=== PATIENT | male | born 1965 | race Caucasian/White ===

== ENCOUNTER 2019-04-02 06:29 | Inpatient (IN) | payer SELFPAY ==
[~2019-04-02] VITALS: Ht 188 cm; Wt 125.9 kg
[~2019-04-02 06:29] MED LIST: ASPI325; HYDACE5325 PO; LORA1 PO; MULVITMIND PO; PROM25 PO
[2019-04-02] MEDS ORDERED: LOSA25 PO (06:47)
[2019-04-02 06:59] LABS: BASOPHILS ABSOLUTE AUTO 0.11 K/mm3 (0.00-0.23); BASOPHILS PERCENT AUTO 1 % (0-2); EOSINOPHILS ABSOLUTE AUTO 0.29 K/mm3 (0.00-0.68); EOSINOPHILS PERCENT AUTO 3 % (0-6); Hematocrit 53.2 % (37.0-53.0); IMMATURE GRAN ABSOLUTE AUTO 0.22 K/mm3 (0.00-0.10); IMMATURE GRAN PERCENT AUTO 2 % (0-1); LYMPHOCYTES ABSOLUTE AUTO 2.94 K/mm3 (0.84-5.20); LYMPHOCYTES PERCENT AUTO 29 % (21-46); MONOCYTES ABSOLUTE AUTO 0.74 K/mm3 (0.16-1.47); MONOCYTES PERCENT AUTO 7 % (4-13); Mean Corpuscular HGB 31.3 pg (26.0-34.0); Mean Corpuscular HGB Conc 33.8 g/dL (31.5-36.5); Mean Corpuscular Volume 92 fL (80-100); Mean Platelet Volume 8.5 fL (9.1-12.4); NEUTROPHILS ABSOLUTE AUTO 5.69 K/mm3 (1.96-9.15); NEUTROPHILS PERCENT AUTO 57 % (41-73); Platelet Count 303 K/mm3 (150-400); RDW Coefficient Variation 12.4 % (11.7-14.2); RDW Standard Deviation 42.1 fL (35.1-46.3); Red Blood Cell Count 5.76 M/mm3 (4.30-5.90); White Blood Cell Count 9.99 K/mm3 (4.00-11.30)
[2019-04-02 07:10] LABS: International Normalized Ratio 0.99; Prothrombin Time Results 10.5 Sec (9.7-11.5)
[2019-04-02 07:11] LABS: Alanine Aminotransfer (ALT/SGP 43 U/L (12-78); Albumin, Blood 4.2 g/dL (3.4-5.0); Albumin/Globulin Ratio 1.2 (0.8-1.8); Alk Phos 72 U/L (50-136); Anion Gap 6 mmol/L (6-16); Aspartate Aminotrans (AST/SGOT 31 U/L (12-37); Bilirubin, Total 0.6 mg/dL (0.1-1.0); Blood Urea Nitrogen 11 mg/dL (8-24); CO2, Blood 28 mmol/L (21-32); Calcium, Blood 8.9 mg/dL (8.5-10.1); Chloride, Blood 106 mmol/L (98-108); Globulin, Blood 3.4 g/dL (2.2-4.0); Glomerular Filtration Rate >60 (60-); Glucose, Blood 100 mg/dL (70-99); Potassium, Blood 4.2 mmol/L (3.5-5.5); Sodium, Blood 140 mmol/L (136-145); Total Protein, Blood 7.6 g/dL (6.4-8.2); Troponin I <0.015 ng/mL (0.000-0.040)
--- NOTE | 2019-04-02 10:55 | NUR ---
PATIENT ARRIVED FROM ER VIA STRETCHER AFTER REPORT WAS RECEIVED FROM CYNTHIA CR, VIA TELEPHONE, PATIENT ABLE TO MOVE SELF FROM STRETCHER TO BED, PLACED ON MONITOR, CALL LIGHT GIVEN AND EXPLAINED, ADMISSION DONE, AT BEDSIDE, PATIENT DENIES PAIN AT THIS TIME, AFEBRILE, STATES THAT HE IS VERY ANXIOUS D/T HIS PTSD, AND HAS NEVER BEEN IN THE HOSPITAL, PATIENT IS ON CARDIZEM GTT AT 5, HR BETWEEN 120'S TO 150'S, VSS OTHERWISE, PATIENT IS ON RA, LUNG SOUNDS CLEAR BUT DIMINISHED, A-FIB, BOWEL TONES HYPOACTIVE, PEDAL PULSES PALPABLE, PATIENT OPTED NOT TO WEAR HOSPITAL GOWN AND LEFT HIS PANTS ON, URINAL GIVEN AND INSTRUCTED TO CALL RN AFTER HE VOIDED, PATIENT VERBALIZED UNDERSTANDING, PATIENT ALSO REFUSED SCD'S AFTER THE RIGHT ON WAS APPLIED, STATED "I AM STARTING TO FEEL TRAPPED", DR. LAWRENCE NOTIFIED AND ORDER FOR SCD'S WAS DISCONTINUED, PATIENT WAS ORIENTED TO ROOM AND NEW ENVIRONMENT, CALL LIGHT IN REACH, WILL CONTINUE TO MONITOR.
--- NOTE | 2019-04-02 13:37 | NUR ---
PATIENT IS RESTING COMFORTABLY, HR DOWN TO 80'S AND 90'S WITH SBP'S IN LOW 110'S, VOIDED WITHOUT ANY PROBLEMS, AT BEDSIDE, PATIENT PLEASANT AND COOPERATIVE, CALL LIGHTIN REACH, WILL CONTINUE TO MONITOR.
[2019-04-02 14:07] LABS: U Amphetamine Screen Not Detected; U Barbituate Screen Not Detected; U Benzodiazapine Screen Not Detected; U Buprenorphine Screen Not Detected; U Cannabinoids Screen Not Detected; U Cocaine Screen Not Detected; U Methadone Screen Not Detected; U Methamphetamine Screen Not Detected; U Opiates Screen Not Detected; U Oxycodone Screen Not Detected; U Phencyclidine Screen Not Detected; U Propoxyphene Screen Not Detected
--- NOTE | 2019-04-02 17:41 | NUR ---
SHIFT SUMMARY NOTE: NO ACUTE EVENTS DURING THIS SHIFT SINCE PATIENT ADMISSION, CONTINUES ON A CARDIZEM GTT, WAS TITRATED FROM 10 DOWN TO 5, PATIENT CONTINUES IN A-FIB WITH HR IN 70'S TO 80'S, SBP'S FROM 120'S TO 130'S, PATIENT HAS A HISTORY OF HTN, FOR WHICH HE TAKES COZAAR AT HOME, LUNG SOUNDS ARE CLEAR BUT DIMINISHED, BOWEL TONES HYPOACTIVE, PATIENT IS ON A CARDIAC DIET AND EATS WITH GREAT APPETITE, USES URINAL TO VOID AND HAD OVER 2L OUT, ALSO DRINKS LOTS OF WATER, PATIENT IS ON LOVENOX, SCD'S WERE DISCONTINUED D/T PATIENT'S ANXIETY LEVEL AND HIS PTSD, PATIENT IS PLEASANT AND COOPERATIVE, ASKS QUESTIONS, MAKES HIS NEEDS KNOWN, AT BEDSIDE, FOR DETAILS SEE ADMISSION AND SHIFT ASSESSMENT DOCUMENTATION AND NURSES NOTES, CALL LIGHT IN REACH, WILL CONTINUE TO MONITOR AND GIVE REPORT TO ONCOMING WELDING INSPECTOR.
--- NOTE | 2019-04-02 19:51 | NUR ---
ASSUMED CARE OF PT, HE IS RESTING QUIETLY AND WATCHING TV. HE DENIES N/V, DENIES SOB/DYSPNEA, DENIES NUMBNESS/TINGLING, DENIES PAIN. ADMITS TO ONGOING CHEST PRESSURE AND PROVIDES 1/10 FOR SCALE. HE IS SPEAKING IN FULL SENTENCES, LUNGS ARE CLEAR THROUGHOUT, MAINTAINING SATS ON ROOM AIR, NO INCREASED WORK OF BREATHING IS NOTED AT THIS TIME. HR IRREG, AFIB ON MONITOR, RATE CONTROLLED TO 80S AT THIS TIME, PRESSURE MAINTAINING, PULSES FULL X 4 EXTREMITIES, BRISK CAP REFILL, NO EDEMA NOTED, SKIN PWD. ABD MILDLY DISTENDED AND SOFT, BOWEL TONES NORMOACTIVE AT THIS TIME, NO TENDERNESS WITH PALPATION. 20 GAUGE IV NOTED TO LEFT AC INFUSING CARDIZEM AT 5 MG/HR, SITE WNL, DRESSING CDI.
[2019-04-03 03:21] LABS: BASOPHILS ABSOLUTE AUTO 0.09 K/mm3 (0.00-0.23); BASOPHILS PERCENT AUTO 1 % (0-2); EOSINOPHILS PERCENT AUTO 2 % (0-6); Hematocrit 49.6 % (37.0-53.0); Hemoglobin 16.6 g/dL (13.5-17.5); IMMATURE GRAN ABSOLUTE AUTO 0.16 K/mm3 (0.00-0.10); IMMATURE GRAN PERCENT AUTO 2 % (0-1); LYMPHOCYTES ABSOLUTE AUTO 2.64 K/mm3 (0.84-5.20); LYMPHOCYTES PERCENT AUTO 31 % (21-46); MONOCYTES ABSOLUTE AUTO 0.69 K/mm3 (0.16-1.47); MONOCYTES PERCENT AUTO 8 % (4-13); Mean Corpuscular HGB 31.3 pg (26.0-34.0); Mean Corpuscular HGB Conc 33.5 g/dL (31.5-36.5); Mean Corpuscular Volume 94 fL (80-100); Mean Platelet Volume 8.5 fL (9.1-12.4); NEUTROPHILS ABSOLUTE AUTO 4.78 K/mm3 (1.96-9.15); NEUTROPHILS PERCENT AUTO 56 % (41-73); Platelet Count 228 K/mm3 (150-400); RDW Coefficient Variation 12.3 % (11.7-14.2); RDW Standard Deviation 42.5 fL (35.1-46.3); White Blood Cell Count 8.56 K/mm3 (4.00-11.30)
[2019-04-03 03:37] LABS: Alanine Aminotransfer (ALT/SGP 37 U/L (12-78); Albumin, Blood 3.5 g/dL (3.4-5.0); Albumin/Globulin Ratio 1.2 (0.8-1.8); Alk Phos 60 U/L (50-136); Anion Gap 4 mmol/L (6-16); Aspartate Aminotrans (AST/SGOT 25 U/L (12-37); Bilirubin, Total 0.7 mg/dL (0.1-1.0); Blood Urea Nitrogen 12 mg/dL (8-24); Bun/Creatinine Ratio 10.6 (12.0-20.0); CO2, Blood 31 mmol/L (21-32); Calcium, Blood 8.9 mg/dL (8.5-10.1); Chloride, Blood 107 mmol/L (98-108); Creatinine, Blood 1.13 mg/dL (0.60-1.20); Glomerular Filtration Rate >60 (60-); Glucose, Blood 92 mg/dL (70-99); Potassium, Blood 4.2 mmol/L (3.5-5.5); Sodium, Blood 142 mmol/L (136-145); Total Protein, Blood 6.5 g/dL (6.4-8.2)
--- NOTE | 2019-04-03 06:13 | NUR ---
PT AWAKE FREQUENTLY THROUGHOUT SHIFT, STATES THAT "IT'S LIKE A HOTEL ROOM, I CAN'T SLEEP THERE EITHER." HE CONTINUES TO DENY CHEST PAIN THROUGHOUT SHIFT AND STATES THAT HE IS FEELING WELL THIS AM. HE WAS NOTED TO HAVE A HEART RATE INCREASE TO THE 150S WITH UP TO THE TOILET THIS AM HOWEVER RATE DECREASED WITHIN 60 SECONDS TO 80-90S, AFIB CONTINUES THROUGHOUT SHIFT.
--- NOTE | 2019-04-03 07:16 | NUR ---
START OF SHIFT NOTE: RECEIVED REPORT FROM ISREAL BURROUGHS RN, ASSUMED CARE, PATIENT IS AWAKE, ALERT AND ORIENTED, WATCHING TV, DENIES PAIN, AFEBRILE, REPORTS THAT HE TOOK CAT NAPS DURING THE NIGHT, ANIBAL GTT ON STANDBY, HR BETWEEN 90'S AND LOW 110'S, PATIENT HAD ONE BRIEF EPISODE OF HR IN 160'S WHEN HE GOT UP TO URINATE, SBP'S IN LOW 100'S, LUNG SOUNDS ARE CLEAR, BOWEL TONES PRESENT IN ALL FOUR QUADRANTS AND HYPOACTIVE, PEDAL PULSES PALPABLE BUT FAINT, CALL LIGHT IN REACH, WILL CONTINUE TO MONITOR.
--- NOTE | 2019-04-03 08:03 | NUR ---
PATIENT SHOWS SOME SIGNS OF ANXIETY, STATED "IF NOBODY SHOWS UP BY LUNCH I AM OUT OF HERE", PATIENT WAS ADVISED THAT IT IS HIS RIGHT, BUT HE NEEDS TO SIGN AN AMA FORM, PATIENT VERBALIZED UNDERSTANDING, PATIENT'S HR WITH SITTING UP OR ANY ACTIVITY IS BACK INTO 120'S TO 140'S, DISCUSSED PATIENT'S MEDICATION FOR THIS AM, PATIENT EATING BREAKFAST AT THIS TIME, CALL LIGHT IN REACH, WILL CONTINUE TO MONITOR.
--- NOTE | 2019-04-03 09:00 | NUR ---
DR. LAWRENCE IN TO SEE PATIENT, NEW ORDERS RECEIVED.
--- NOTE | 2019-04-03 12:34 | NUR ---
PATIENT IS SLEEPING SOUNDLY AFTER RECEIVING 50 MG OF LIBRIUM PO AND HAVING LUNCH, AT BEDSIDE, CALL LIGHT IN REACH, WILL CONTINUE TO MONITOR.
[2019-04-03] MEDS ORDERED: ASPI325 PO (14:31)
[2019-04-03] MEDS ORDERED: FOLI1 PO (14:32)
[2019-04-03] MEDS ORDERED: METO50 PO (14:34)
[2019-04-03] MEDS ORDERED: Thiamine HCl100 MG PO (14:35)
[2019-04-03] MEDS ORDERED: ABAT250V (14:35)
--- NOTE | 2019-04-03 15:03 | NUR ---
PATIENT WAS DISCHARGED TO HOME, PAPERWORK WRITTEN AND VERBAL PROVIDED AND EXPLAINED, PATIENT AND VERBALIZED UNDERSTANDING, NEW MEDICATION WAS FAXED TO [facility] ON [address] AND EXPLAINED TO PATIENT, WILL HOME CARE ASSISTANT, PIV REMOVED WITH TIP AND TUBING INTACT, PATIENT DENIED ESCORT OUT OF HOSPITAL AND WALKED TO EXIT ACCOMPANIED BY AND DAUGHTER.
== END 2019-04-03 15:00 | disposition home or self-care (01) | DRG 310 ==
LOC: ER 06:29 → ICUW 09:30 → ICUE 10:47
PROVIDERS: Emergency Medicine; Nurse Practitioner Acute Care; ADMIT Internal Medicine
DX: I48.91 Unspecified atrial fibrillation (principal); F17.290 Nicotine dependence, other tobacco product, uncomplicated; I10 Essential (primary) hypertension; F43.10 Post-traumatic stress disorder, unspecified; K21.9 Gastro-esophageal reflux disease without esophagitis; F41.1 Generalized anxiety disorder; F32.9 Major depressive disorder, single episode, unspecified; F10.20 Alcohol dependence, uncomplicated; Z79.82 Long term (current) use of aspirin
CPT/HCPCS: 36415; 71045; 80053; 83735; 84443; 84484; 85025; 85610; 85730; 93005; 93010; 93306; 96365-59; 96366; 96376-59; 99285-25; J1650; J2060; J7030

== ENCOUNTER 2019-04-26 08:29 | Emergency (ER) | payer SELFPAY ==
[~2019-04-26] VITALS: Ht 190.5 cm; Wt 127.0 kg
[~2019-04-26 08:29] MED LIST changes: +ABAT250V; +ASPI325 PO; +FOLI1 PO; +LOSA25 PO; +METO50 PO; +Thiamine HCl100 MG PO
[2019-04-26 09:15] LABS: BASOPHILS ABSOLUTE AUTO 0.06 K/mm3 (0.00-0.23); BASOPHILS PERCENT AUTO 1 % (0-2); EOSINOPHILS ABSOLUTE AUTO 0.12 K/mm3 (0.00-0.68); EOSINOPHILS PERCENT AUTO 2 % (0-6); Hematocrit 35.3 % (37.0-53.0); IMMATURE GRAN ABSOLUTE AUTO 0.12 K/mm3 (0.00-0.10); IMMATURE GRAN PERCENT AUTO 2 % (0-1); LYMPHOCYTES PERCENT AUTO 28 % (21-46); MONOCYTES ABSOLUTE AUTO 0.42 K/mm3 (0.16-1.47); MONOCYTES PERCENT AUTO 7 % (4-13); Mean Corpuscular HGB 30.9 pg (26.0-34.0); Mean Corpuscular Volume 91 fL (80-100); Mean Platelet Volume 9.2 fL (9.1-12.4); NEUTROPHILS ABSOLUTE AUTO 3.32 K/mm3 (1.96-9.15); NEUTROPHILS PERCENT AUTO 59 % (41-73); Platelet Count 237 K/mm3 (150-400); RDW Coefficient Variation 12.2 % (11.7-14.2); Red Blood Cell Count 3.88 M/mm3 (4.30-5.90); White Blood Cell Count 5.64 K/mm3 (4.00-11.30)
[2019-04-26 09:36] LABS: Alanine Aminotransfer (ALT/SGP 39 U/L (12-78); Albumin, Blood 3.8 g/dL (3.4-5.0); Albumin/Globulin Ratio 1.4 (0.8-1.8); Alk Phos 43 U/L (50-136); Anion Gap 6 mmol/L (6-16); Aspartate Aminotrans (AST/SGOT 21 U/L (12-37); Bilirubin, Total 0.5 mg/dL (0.1-1.0); Blood Urea Nitrogen 22 mg/dL (8-24); Bun/Creatinine Ratio 26.2 (12.0-20.0); CO2, Blood 26 mmol/L (21-32); Calcium, Blood 8.5 mg/dL (8.5-10.1); Chloride, Blood 108 mmol/L (98-108); Creatinine, Blood 0.84 mg/dL (0.60-1.20); Globulin, Blood 2.8 g/dL (2.2-4.0); Glomerular Filtration Rate >60 (60-); Glucose, Blood 95 mg/dL (70-99); Potassium, Blood 3.8 mmol/L (3.5-5.5); Sodium, Blood 140 mmol/L (136-145); Total Protein, Blood 6.6 g/dL (6.4-8.2)
== END 2019-04-26 10:40 | disposition home or self-care (01) ==
LOC: ER 08:29
PROVIDERS: Emergency Medicine
DX: K92.2 Gastrointestinal hemorrhage, unspecified (principal); I10 Essential (primary) hypertension; F17.220 Nicotine dependence, chewing tobacco, uncomplicated; Z79.899 Other long term (current) drug therapy; Z79.82 Long term (current) use of aspirin
CPT/HCPCS: 36415; 80053; 82272; 85025; 86850; 86900; 86901; 96374; 99283-25; C9113